=== PATIENT | male | born 1990 | race Caucasian/White ===

== ENCOUNTER 2017-05-11 12:44 | Inpatient (IN) ==
[2017-05-11 13:21] LABS: BASO% 0.1 % (0.0-0.8); EOS# 0.01 X1000 (0.0-0.7); EOS% 0.1 % (0.0-10.0); HEMATOCRIT 44.1 % (42.0-52.0); HEMOGLOBIN 15.3 g/dL (14.0-18.0); IMM GRAN# 0.04 X1000 (0.0-0.04); IMM GRAN% 0.2 % (0.0-0.5); LYMPH# 0.91 X1000 (1.2-3.4); LYMPH% 4.7 % (20.5-51.1); MANUAL DIFF NEEDED? NO; MCH 27.2 PG (27-31); MCHC 34.7 g/dL (33-37); MCV 78.3 FL (81-99); MONO% 5.2 % (1.7-9.3); MPV 9.8 FL (7.4-10.4); NEUT% 89.7 % (42.2-75.2); PLT 271 X1000 (130-400); RBC 5.63 XMIL (4.7-6.1)
[2017-05-11 13:35] LABS: AGAP 15; ALBUMIN 4.5 g/dL (3.5-5.0); ALKALINE PHOSPHATASE 105 U/L (32-122); AMYLASE 65 U/L (20-200); BUN 12 mg/dL (8-22); CALCIUM 9.2 mg/dL (8.8-10.2); CHLORIDE 96 mmol/L (98-107); COSMO 269; GOT 13 U/L (10-34); GPT 21 U/L (10-44); LIPASE 62 U/L (13-60); POTASSIUM 3.8 mmol/L (3.5-5.1); SODIUM 134 mmol/L (136-145); TCO2 23 mmol/L (25-35); TOTAL BILIRUBIN 1.53 mg/dL (0.20-1.00); TOTAL PROTEIN 7.5 g/dL (6.3-8.3)
--- NOTE | 2017-05-11 13:41 | Diag Imaging Result Doc PS360 ---
EXAM: ABDOMEN FLAT/UPRIGHT HISTORY: abd pain TECHNIQUE: Four views COMPARISON: None. FINDINGS: No free air beneath the diaphragm. There is stool scattered throughout the colon. The bowel loops are not dilated. No organomegaly. No abnormal abdominal or pelvic calcifications. IMPRESSION: Constipation Electronically signed by Alex Hinton 05/11/2017 1:39 PM
[2017-05-11 13:53] LABS: URINE MICRO REVIEW NEEDED? NO; URINE SOURCE CLEAN CATCH
[2017-05-11 14:03] LABS: BILIRUBIN URINE SMALL (NEGATIVE); BLOOD URINE NEGATIVE (NEGATIVE); COLOR YELLOW; GLUCOSE URINE NEGATIVE (NEGATIVE); LEUKOCYTES URINE NEGATIVE (NEGATIVE); NITRITE URINE POSITIVE (NEGATIVE); PROTEIN URINE 30 mg/dL (NEGATIVE); SP GRAVITY URINE 1.027; TURBIDITY URINE CLEAR (CLEAR); UROBILINOGEN URINE 2 mg/dL (NORMAL)
[2017-05-11 14:04] LABS: UR EPITHELIAL CELLS <10 /HPF (<10); URINE BACTERIA NEGATIVE /HPF; URINE CULTURE NEEDED? YES; URINE RBC <10 /HPF (<10); URINE WBC <10 /HPF (<10)
--- NOTE | 2017-05-11 15:18 | Diag Imaging Result Doc PS360 ---
EXAM: CT ABD/PELVIS W/ IV CONT ONLY HISTORY: llq pain, fever TECHNIQUE: CT abdomen and pelvis with intravenous contrast. Dose reduction protocol. COMPARISON: None. FINDINGS: There is fatty infiltration of the liver. No focal hepatic abnormality. Normal spleen, pancreas, gallbladder, adrenal glands, and kidneys. No hydronephrosis. No bowel obstruction. Normal appendix. There are inflammatory changes adjacent to the proximal sigmoid colon. There are several tiny air bubbles adjacent to the colon. No distinct mass or definite diverticula. No abscess. The urinary bladder is moderately distended and appears normal. The prostate is not enlarged. There are tiny scattered mesenteric nodes. IMPRESSION: 1.Focal colitis in the proximal sigmoid colon with a small focal perforation. Although no diverticula are identified, these could be present and just not identified. 2.Fatty infiltration of the liver 3.A preliminary report was called to Dr. Sarkar in the emergency room at 3:15 PM Electronically signed by Alex Hinton 05/11/2017 3:16 PM
[2017-05-11] MEDS ORDERED: ZOSYN 3.375 GM/NS 3.375 GM/50 ML IVPB IV ONE (15:23)
[2017-05-11] MEDS ORDERED: MORPHINE IV ONE (15:24)
[2017-05-11] MEDS ORDERED: NS 1,000 ML IV ONE ×2 (15:32→18:39)
[2017-05-11] MEDS ORDERED: MORPHINE IV PRN ×2 (15:58→18:39)
--- NOTE | 2017-05-11 16:13 | PROVIDER DOCUMENTATION ---
This chart was entered by Elsa Ly Scribe, acting as scribe for Jacques Sarkar MD. HPI-Abdominal Pain/GI Problem - General Chief Complaint: Abdominal Pain Stated Complaint: LOWER ABD PAIN Time Seen by Provider: 05/11/17 13:53 Source: patient Allergies/Adverse Reactions: Patient Allergies Allergy/AdvReac Type Severity Reaction Status Date / Time No Known Allergies Allergy Verified 05/11/17 14:02 Home Medications: Home Medication List Medication Instructions Recorded Confirmed Last Taken Type NK [No Home Medications] 05/11/17 05/11/17 Unknown History - History of Present Illness-ABD Nature of Presenting Problems: Pt is 27 y/o M presents to the ED with LLQ pain. Pt states pain has been present since yesterday. Pt denies fever and chills. Pt states pain worsened last night. Pt states being seen at [facility] this am and was told to come to the ED. Pt denies hx of GI issues. Pt denies daily med intake. Abdominal Pain Onset Location: reports: LLQ Pain Radiation: reports: no radiation Quality of Pain: reports: aching Severity in ED: reports: moderate Onset/Duration: reports: 24 hours ago Timing: reports: still present Activities at Onset: reports: light activity Modifying Factors: improves with: nothing Associated Symptoms: reports: denies symptoms Last BM: unsure Dark Stools Present?: reports: none noticed Rectal Bleeding: reports: none Rectal Pain: reports: none Emesis Description: reports: none Bruising or Bleeding Gums?: No Similar Symptoms Previously?: Yes (present since yesterday ) Recently seen or treated by another doctor?: Yes (seen at [facility] this am ) Review of Systems - Adult - REVIEW OF SYSTEMS - ADULT Constitutional: denies: chills, fever Eyes: denies: blurred vision, double vision, redness Ears, Nose, Mouth & Throat: denies: ear pain, nose pain, throat pain Cardiovascular: denies: chest pain, heart murmur, irregular heart rate Respiratory: denies: cough, shortness of breath, wheezing Gastrointestinal: reports: abdominal pain (LLQ). denies: diarrhea, nausea, vomiting Genitourinary: denies: dysuria, hematuria, urinary retention Musculoskeletal: denies: back pain, joint pain, neck pain Integumentary: denies: hives, itching, rash Neurological: denies: dizziness/vertigo, headache/migraines, numbness, seizure, syncope Psychiatric: reports: no symptoms reported Endocrine: reports: no symptoms reported Hematologic/Lymphatic: reports: no symptoms reported Allergic/Immunologic: reports: no symptoms reported All Other Systems: Reviewed and Negative Past History - Adult - PAST MEDICAL HISTORY-ADULT Review of Records: reports: Nursing Assessment Review, Medications Reviewed, Social history reviewed & non-contributory. Major Childhood Illnesses: reports: denies history Cardiovascular: reports: denies history Respiratory: reports: denies history Gastrointestinal: reports: denies history Obstetrical/Gynecological: reports: denies history Genitourinary: reports: denies history Musculoskeletal: reports: denies history Neurological: reports: denies history Endocrine/Immune: reports: denies history Other Conditions: reports: denies history - PRIOR SURGERIES/PROCEDURES Surgical/Procedure History: reports: reviewed, not pertinent - IMMUNIZATION STATUS Childhood Immunizations: See Nurse Assessment Flu Vaccine: See Nurse Assessment - FAMILY HISTORY Family History: reviewed, not pertinent - SOCIAL HISTORY Smoking: denies Substance Use: denies Living Situation: family Physical Exam-General - PHYSICAL EXAM-ADULT Initial Vital Signs Reviewed: Yes - CONSTITUTIONAL General Appearance: appears well, alert, no apparent distress, obese. negative : lethargic, slow to respond - EYES Eyes: PERRL/EOMI, pink conjunctivae. negative: subconjunctival hemorrhage, sunken eyes - HEAD, EARS, NOSE, MOUTH & THROAT HENMT: normocephalic/atraumatic, moist mucous membranes, normal ENT inspection. negative: dental decay, hearing deficit - NECK Neck: non-tender, normal inspection. negative: lymphadenopathy, tender lateral - RESPIRATORY Respiratory: chest non-tender, lungs clear, normal breath sounds. negative: crackles, rhonchi, stridor, wheezing - CARDIOVASCULAR Cardiovascular: normal peripheral pulses, regular rate, rhythm. negative: tachycardia, systolic murmur - GASTROINTESTINAL (ABDOMEN) Abdominal Exam: normal bowel sounds, soft, tenderness (LLQ). negative: hernia, mass - LYMPHATIC Lymphatic: no adenopathy. negative: enlargement, streaking - MUSCULOSKELETAL Back Exam: normal inspection. negative: ecchymosis, muscle spasm Extremity: normal range of motion, normal inspection. negative: deformity, erythema, swelling - SKIN Integumentary: normal turgor, warm, other (flushed). negative: cyanosis, ecchymosis - NEUROLOGIC Neurologic: grossly normal. negative: aphasia, facial droop - PSYCHIATRIC Psych/Mental Status: normal mood/affect, oriented x 3. negative: paranoid, tearful Progress - PLAN OF CARE/RESULTS Progress/Plan/Lab Results: Vital Signs - 8 hr 05/11/17 12:52 Temperature 98.9 F Pulse Rate 84 Respiratory Rate 18 Blood Pressure 136/71 O2 Sat by Pulse Oximetry 100 Laboratory Results - last 24 hr 05/11/17 05/11/17 05/11/17 13:00 13:00 13:41 WBC 19.17 H RBC 5.63 Hgb 15.3 Hct 44.1 MCV 78.3 L MCH 27.2 MCHC 34.7 RDW Std Deviation 12.8 Plt Count 271 MPV 9.8 Immature Gran % (Auto) 0.2 Neut % (Auto) 89.7 H Lymph % (Auto) 4.7 L [place] % (Auto) 5.2 Eos % (Auto) 0.1 Baso % (Auto) 0.1 Immature Gran # (Auto) 0.04 Neut # (Auto) 17.19 H Lymph # (Auto) 0.91 L [place] # (Auto) 1.00 H Eos # (Auto) 0.01 Baso # (Auto) 0.02 Sodium 134 L Potassium 3.8 Chloride 96 L Carbon Dioxide 23 L Anion Gap 15 BUN 12 Creatinine 0.8 Estimated GFR/1.73 m2 > 60 BUN/Creatinine Ratio 15 Glucose 117 H Calculated Osmolality 269 Calcium 9.2 Total Bilirubin 1.53 H AST 13 ALT 21 Alkaline Phosphatase 105 Total Protein 7.5 Albumin 4.5 Globulin 3.0 Albumin/Globulin Ratio 1.5 Amylase 65 Lipase 62 H Urine Source CLEAN CATCH Urine Color YELLOW Urine Turbidity CLEAR Urine pH 6.0 Ur Specific [place] 1.027 Urine Protein 30 A Ur Glucose (Stick) NEGATIVE Ur Ketones (Stick) 10 A Urine Blood NEGATIVE Urine Nitrite POSITIVE A Urine Bilirubin SMALL A Urobilinogen Dipstick 2 A Urine Leukocytes NEGATIVE Urine WBC (Auto) <10 Urine RBC (Auto) <10 U Epithel Cells (Auto) <10 Urine Bacteria (Auto) NEGATIVE Orders Category Date Time Status NPO Diet 05/11/17 12:52 Active ABDOMEN FLAT/UPRIGHT [RAD] Stat Exams 05/11/17 12:57 Completed AMYLASE [CHEM] Stat Lab 05/11/17 13:00 Completed CBC WITH ELECTRONIC DIFF [HEME] Stat Lab 05/11/17 13:00 Completed COMPREHENSIVE METABOLIC PANEL [CHEM] Stat Lab 05/11/17 13:00 Completed LIPASE [CHEM] Stat Lab 05/11/17 13:00 Completed URINALYSIS W/POSS RFLX CULT-1 [URINALYSIS] Stat Lab 05/11/17 13:41 Completed URINE CULTURE [RM] Routine Lab 05/11/17 14:22 Received Result Diagrams: 05/11/17 13:00 05/11/17 13:00 - XRAY 1 XRAY Study: Chest, Abdomen Impression: Abnormal XRAY Interpretation: constipation - CT/MRI 1 CT Study: Abdomen, Pelvis Impression: Abnormal (focal colitis in the proximal sigmoid colon with a small focal perforation. although no diverticula are identified, these could be present and just not identified. fatty infiltration of the liver) - CONSULTS/PCP/HOSPITALIST Notification #1 *Consult/PCP/Hospitalist*: Dr. Saenz Time Discussed: 15:22 Reason/Comments: Dr. Sarkar consulted with Dr. Saenz about Pt Consult Disposition: Admit Departure - Departure Date of Disposition Decision: 05/11/17 Time of Disposition Decision: 15:25 DIAGNOSIS: Perforation of sigmoid colon DIAGNOSIS: (Ruled Out): Colon perforation Disposition: ADMITTED INPATIENT 09 Certified Medical Emergency: Emergent Condition: Stable Referrals and Follow-Ups: None,PCP [Primary Care Provider] - - Critical Care Note This patient required my direct & personal management of CC.: No This chart was documented by the indicated scribe, (Elsa Ly Scribe) and accurately reflects the services I performed and decisions made by me, Jacques Sarkar MD, as attested by the provider's signature.
[2017-05-11] MEDS ORDERED: TYLENOL PO ONE (17:19)
[2017-05-11] MEDS ORDERED: TYLENOL PO PRN (18:38)
[2017-05-11] MEDS ORDERED: ZOFRAN IV PRN (18:39)
[2017-05-11] MEDS: ZOSYN 3.375 GM/NS 3.375 GM/50 ML IVPB IV SCH (21:55)
[2017-05-11] MEDS: NORCO-10 PO PRN (22:02)
--- NOTE | 2017-05-11 22:10 | HISTORY AND PHYSICAL ---
CHIEF COMPLAINT: Left lower quadrant pain and tenderness. HISTORY: A 27-year-old obese gentleman who reports the onset of left lower quadrant pain since yesterday. The pain worsened last night. He sought medical attention today. He has had no similar previous illness. He has no other past medical history of significance. He takes no scheduled medications. Has no known drug allergies. He still has been able to aliment even though today he has only had a pop tart. PAST MEDICAL HISTORY: Unremarkable. PAST SURGICAL HISTORY: He has had no surgery. SOCIAL HISTORY: He denies smoking. Denies substance abuse. He does work for [employer]. FAMILY HISTORY: Noncontributory. REVIEW OF SYSTEMS: Negative except for fever and the left lower quadrant pain. Negative in all the subsystems. PHYSICAL EXAMINATION: VITAL SIGNS: Temperature is 100.8 degrees, heart rate 120, respiratory rate 20, blood pressure 152/74. NECK: No cervical adenopathy. No thyroid masses. LUNGS: Bilateral breath sounds are present. HEART: Regular rate and rhythm. ABDOMEN: He is tender in the left lower quadrant. Bowel sounds are hypoactive. EXTREMITIES: No peripheral edema. Pedal pulses are present. NEUROLOGIC: He is awake and alert. DIAGNOSTICS/LABORATORY: White count is 19,100, hemoglobin 15.3. BUN 12, creatinine 0.8. Urine is nitrite positive. ASSESSMENT: 1. Inflammatory process of the left lower quadrant, most typical for diverticulitis, even though diverticula are not seen on CT. He does have inflammatory process around the sigmoid. No discrete abscess is seen. There is no obvious free air. 2. Urinary tract infection. PLAN: IV antibiotic therapy. Control his temperature and will follow along and hopefully we can treat this conservatively and resolve the issue. I discussed the plans with he, his and his parents. They understand and agree. cc: Jacques Saenz MD
[2017-05-12] MEDS: ZOSYN 3.375 GM/NS 3.375 GM/50 ML IVPB IV SCH ×4 (04:57→22:29)
[2017-05-12 06:29] LABS: AGAP 13; BASO% 0.1 % (0.0-0.8); BUN 9 mg/dL (8-22); CALCIUM 8.9 mg/dL (8.8-10.2); CHLORIDE 99 mmol/L (98-107); COSMO 272; EOS# 0.02 X1000 (0.0-0.7); EOS% 0.1 % (0.0-10.0); HEMATOCRIT 40.7 % (42.0-52.0); HEMOGLOBIN 13.8 g/dL (14.0-18.0); LYMPH# 1.22 X1000 (1.2-3.4); LYMPH% 7.4 % (20.5-51.1); MCH 27.5 PG (27-31); MCHC 33.9 g/dL (33-37); MCV 81.1 FL (81-99); MONO# 0.97 X1000 (0.11-0.59); MONO% 5.9 % (1.7-9.3); MPV 9.9 FL (7.4-10.4); NEUT% 86.5 % (42.2-75.2); PLT 214 X1000 (130-400); POTASSIUM 3.9 mmol/L (3.5-5.1); RBC 5.02 XMIL (4.7-6.1); SODIUM 136 mmol/L (136-145); TCO2 24 mmol/L (25-35)
[2017-05-12 07:33] LABS: MANUAL DIFF NEEDED? NO
[2017-05-12] MEDS: NORCO-10 PO PRN ×3 (09:13→23:53)
[2017-05-13] MEDS: ZOSYN 3.375 GM/NS 3.375 GM/50 ML IVPB IV SCH ×4 (04:59→22:55)
[2017-05-13 05:37] LABS: MANUAL DIFF NEEDED? NO
[2017-05-13 05:47] LABS: BASO% 0.1 % (0.0-0.8); EOS# 0.09 X1000 (0.0-0.7); EOS% 0.7 % (0.0-10.0); HEMATOCRIT 40.1 % (42.0-52.0); HEMOGLOBIN 13.6 g/dL (14.0-18.0); IMM GRAN# 0.02 X1000 (0.0-0.04); IMM GRAN% 0.1 % (0.0-0.5); LYMPH# 1.44 X1000 (1.2-3.4); LYMPH% 10.6 % (20.5-51.1); MCHC 33.9 g/dL (33-37); MCV 79.6 FL (81-99); MONO# 1.07 X1000 (0.11-0.59); MONO% 7.9 % (1.7-9.3); MPV 9.7 FL (7.4-10.4); NEUT% 80.6 % (42.2-75.2); PLT 226 X1000 (130-400); RBC 5.04 XMIL (4.7-6.1)
[2017-05-13] MEDS: NS 1,000 ML IV SCH (09:28)
[2017-05-14] MEDS: ZOSYN 3.375 GM/NS 3.375 GM/50 ML IVPB IV SCH ×4 (04:57→22:52)
[2017-05-14] MEDS: NS 1,000 ML IV SCH ×2 (05:10→22:51)
[2017-05-15] MEDS: ZOSYN 3.375 GM/NS 3.375 GM/50 ML IVPB IV SCH (04:56)
[2017-05-15 05:58] LABS: MANUAL DIFF NEEDED? NO
[2017-05-15 06:03] LABS: BASO% 0.1 % (0.0-0.8); EOS# 0.19 X1000 (0.0-0.7); EOS% 2.2 % (0.0-10.0); HEMATOCRIT 41.5 % (42.0-52.0); HEMOGLOBIN 14.2 g/dL (14.0-18.0); LYMPH# 1.36 X1000 (1.2-3.4); MCHC 34.2 g/dL (33-37); MONO# 0.59 X1000 (0.11-0.59); MONO% 6.9 % (1.7-9.3); MPV 9.6 FL (7.4-10.4); NEUT% 74.8 % (42.2-75.2); PLT 265 X1000 (130-400); RBC 5.25 XMIL (4.7-6.1)
[2017-05-15 08:49] VITALS: BP 134/68
[2017-05-15] MEDS ORDERED: AUGMENTIN PO SCH (09:00)
[2017-05-15] MEDS: NS 1,000 ML IV SCH (09:41)
--- NOTE | 2017-05-17 10:10 | DISCHARGE SUMMARY ---
ADMISSION DATE: 05/11/2017 DISCHARGE DATE: 05/15/2017 PRIMARY DISCHARGE DIAGNOSIS: Acute diverticulitis. HISTORY: This is a 27-year-old with the acute onset of left lower quadrant pain. A CT scan showed inflammation of his sigmoid. No obvious diverticula was seen but it appeared to show inflammation within the mesentery. His white count was elevated at 16,000. He was placed on Zosyn. He responded with decrease in left lower quadrant pain and a fall in his white count. We placed on liquids and advanced his diet. By 05/15/2017, he was afebrile, much less tender, white count was down to 8500. It was felt he could be discharged home. We put him on Augmentin 875 twice a day for 5 days. He will return to the office if needed. He can resume work whenever he feels up to it. cc: Jacques Saenz MD
== END 2017-05-15 10:43 | disposition home or self-care (01) ==
LOC: ED 12:44 → 4N 17:29
PROVIDERS: ADMIT Surgery; ATTEND Surgery